=== PATIENT | male | born 2000 | race Caucasian/White ===

== ENCOUNTER 2019-03-24 13:04 | Day surgery (SDC) | payer OTHER ==
[~2019-03-24 13:04] MED LIST: CEFAZOLIN 2 GM/50 ML (PMX) 50 ML IVPB ONE; LACTATED RINGER'S 1,000 ML IV SCH
== END 2019-03-24 14:00 | disposition home or self-care (01) ==
LOC: SDS 13:04
PROVIDERS: ATTEND Orthopaedic Surgery Adult Reconstructive Orthopaedic Surgery
DX: S82.52XD Displaced fracture of medial malleolus of left tibia, subsequent encounter for closed fracture with routine healing (principal); X58.XXXD Exposure to other specified factors, subsequent encounter; Z53.9 Procedure and treatment not carried out, unspecified reason

== ENCOUNTER 2019-04-02 07:52 | Day surgery (SDC) | payer OTHER ==
[2019-04-01 12:01] VITALS: BMI 22.3
[~2019-04-02] VITALS: Ht 162.6 cm; Wt 58.8 kg
[2019-04-02] VITALS (14 sets, daily range): BP systolic 118–143; BP diastolic 75–97; PULSE 84–110; RESP 10–18; Ht 162.6 cm; Wt 58.8 kg
[2019-04-02] MEDS ORDERED: IBUP-1542 PO (09:45)
--- NOTE | 2019-04-02 10:16 | PREAC ---
Date/Time of Note Date/Time of Note DATE: 04/02/19 TIME: 10:15 Anesthesia Eval and Record Evaluation Time Pre-Procedure Interview DATE: 04/02/19 TIME: 10:15 Age 18 Sex male NPO: 8 hrs Preoperative diagnosis Left Ankle Fracture Planned procedure Left Ankle ORIF Past Medical History Past Medical History: None Surgery & Anesthesia Issues No known issue Meds Anticoagulation: No Beta Nadine within 24 hr: No Reason Beta Nadine not given: Pt. not on B-Nadine Reported Medications Ibuprofen* (Ibuprofen*) 600 Mg Tablet, 600 MG PO Q6H, TAB 04/02/19 Current Medications Lactated Ringer's 1,000 ml @ 25 mls/hr Q24H IV Last administered on 04/02/19at 09:15; Admin Dose 25 MLS/HR; Start 04/02/19 at 07:00 Meds reviewed: Yes Allergies Coded Allergies: amoxicillin (Verified Allergy, Unknown, 04/02/19) Allergies Reviewed: Yes Labs/Studies Labs Reviewed: Reviewed by anesthesiologist test: N/A Studies: ECG (n/a), CXR (n/a) Pre-procedure Exam Last vitals Vital Signs Date Temp Pulse Resp B/P (MAP) Pulse Ox O2 O2 Flow FiO2 Time Delivery Rate 04/02/19 98.8 101 16 131/81 96 Room Air 09:18 (98) Airway: Adequate mouth opening, Adequate thyromental dist Mallampati: Mallampati II Teeth: Normal Lung: Normal Heart: Normal ASA Physical Status ASA physical status: 1 Emergency: None Planned Anesthetic General/MAC: LMA Nerve block: Femoral (left), Sciatic (left) Planned Pain Management Single shot nerve block, Parenteral pain med Pre-operative Attestations Prior to commencing anesthesia and surgery, the patient was re-evaluated, there was verification of: *The patient's identity *The results of appropriate recent lab work and preoperative vital signs *The above evaluation not changing prior to induction *Anesthetic plan, risk benefits, alternative and complications discussed with patient/family; questions answered; patient/family understands, accepts and wishes to proceed. BAILEE MEDINA MD Apr 02, 2019 10:16
[2019-04-02] MEDS ORDERED: PROPOFOL 20 ML ONE (10:23)
[2019-04-02] MEDS ORDERED: ROCURONIUM 50 MG INJ ONE (10:23)
[2019-04-02] MEDS ORDERED: CEFAZOLIN 1 GM INJ ONE (10:23)
[2019-04-02] MEDS ORDERED: FENTAnyl 50 MCG/ML VIAL ONE (10:25)
[2019-04-02] MEDS ORDERED: MIDAZOLAM 1 MG/ML 2 ML INJ ONE (10:25)
[2019-04-02] MEDS ORDERED: ROPIVACAINE 0.5 % 30 ML VIAL ONE (10:25)
[2019-04-02] MEDS ORDERED: ROPIVACAINE 0.2% 20 ML VIAL ONE (10:25)
[2019-04-02] MEDS ORDERED: METOCLOPRAMIDE 10 MG INJ IV PRN (10:30)
[2019-04-02] MEDS ORDERED: ONDANSETRON 4 MG INJ IV PRN (10:30)
[2019-04-02] MEDS ORDERED: DIPHENHYDRAMINE 50 MG INJ IV PRN (10:30)
[2019-04-02] MEDS ORDERED: MEPERIDINE 25 MG INJ IV PRN (10:30)
[2019-04-02] MEDS ORDERED: HYDROmorphONE 1 MG/5 ML IV SYRINGE IV PRN ×3 (10:30)
[2019-04-02] MEDS ORDERED: OXYCODONE/ACETAMINOPHEN (5/325) TAB PO PRN (10:30)
[2019-04-02] MEDS ORDERED: EPHEDrine 25 MG/5 ML SYG IV PRN (10:30)
[2019-04-02] MEDS ORDERED: FENTAnyl 50 MCG/ML VIAL IV PRN ×3 (10:30)
--- NOTE | 2019-04-02 10:39 | HPN ---
Date/Time of Note Date/Time of Note DATE: 04/02/19 TIME: 10:39 Interval H&P Admission Note Pt. seen H&P reviewed: No system changes MARIA LUISA DOW MD Apr 02, 2019 10:39
[2019-04-02] MEDS ORDERED: POLYMYXIN/BACITRACIN 1L IRRIG IRR ONE (10:50)
[2019-04-02] MEDS ORDERED: BACITRACIN 50000 UNITS INJ ONE (11:10)
[2019-04-02] MEDS ORDERED: ONDANSETRON 4 MG INJ ONE (11:30)
[2019-04-02] MEDS ORDERED: DEXAMETHASONE 4 MG/ML 5 ML INJ ONE (11:30)
[2019-04-02] MEDS ORDERED: KETOROLAC 30 MG INJ ONE (11:30)
[2019-04-02] MEDS ORDERED: METOCLOPRAMIDE 10 MG INJ ONE (11:30)
[2019-04-02] MEDS ORDERED: GLYCOPYRROLATE 0.4 MG INJ ONE (12:49)
[2019-04-02] MEDS ORDERED: NEOSTIGMINE 3 MG/3 ML SYRINGE ONE (12:49)
--- NOTE | 2019-04-02 13:09 | PAC ---
Date/Time of Note Date/Time of Note DATE: 04/02/19 TIME: 13:09 Post-Anesthesia Notes Post-Anesthesia Note Last documented vital signs Vital Signs Date Temp Pulse Resp B/P (MAP) Pulse Ox O2 O2 Flow FiO2 Time Delivery Rate 04/02/19 98.8 101 16 131/81 96 Room Air 12:08 (98) Activity: WNL Respiratory function: WNL Cardiovascular function: WNL Mental status: Baseline Pain reasonably controlled: Yes Hydration appropriate: Yes Nausea/Vomiting absent: Yes BAILEE MEDINA MD Apr 02, 2019 13:09
--- NOTE | 2019-04-02 13:11 | SIPON ---
Date/Time of Note Date/Time of Note DATE: 04/02/19 TIME: 13:10 Operative Report Preoperative Diagnosis Left Bimalleolar Ankle Fracture Postoperative Diagnosis Same Operation/Procedure Performed Left Ankle ORIF Surgeon Julian Rosario MD commercial escrow assistant Raymundo Kim MD Anesthesia: general Estimated blood loss: minimal Transfusion Required none Specimen none Grafts/Implants none Complications none JULIAN ROSARIO MD Apr 02, 2019 13:11
--- NOTE | 2019-04-02 13:24 | OPR ---
Date/Time of Note Date/Time of Note DATE: 04/02/19 TIME: 13:15 Operative Report Free Text/Dictation DATE OF OPERATION: April 02, 2019 PREOPERATIVE DIAGNOSIS: 1.Left Young C fibula fracture 2. Left medial malleolus fracture POSTOPERATIVE DIAGNOSIS: Same OPERATION PERFORMED: 1.Left ankle open reduction internal fixation IMPLANT USED: [place] 12 hole plate, 44 mm screw from medial malleolus SURGEON: Julian Dow MD SENIOR MANUFACTURING TEST ENGINEER: Raymundo Kim MD ANESTHESIA: General endotracheal. ANESTHESIOLOGIST: Smith Borges MD COMPLICATIONS: None. ESTIMATED BLOOD LOSS: Minimal TOURNIQUET TIME: 103 minutes at 250mmHg DESCRIPTION OF OPERATION: The patient was brought to the OR and laid supine on the OR table. General anesthesia was induced. A tourniquet was placed high up on his left thigh. The left lower extremity was then prepped and draped in the usual sterile fashion. Next, Esmarch bandage was used to exsanguinate the left lower extremity, and the tourniquet was inflated to 250 mmHg. Next, standard lateral approach to the distal fibula was performed. The fracture was exposed. There was a moderate amount of comminution in the fibula. Therefore, the comminuted segment was not devascularized, and a 12-hole LCDC plate was fashioned to the fibula. C-arm fluoroscopy was used to establish length with the application of the plate. Three screws were placed in the distal fragments followed by three bicortical non locking screws in the proximal fragm ent. The comminuted segment was bridged with the plates. Excellent reduction was obtained with good length of the fibula. Next, attention was directed towards the medial malleolar fracture. A standard medial approach was then performed exposing the medial malleolar fracture. Next, the medial malleolar fracture fragments were provisionally reduced using K- wires. The articular surface was restored as best as possible. One 4.0 mm cancellous screw was placed into the main fragments up into the distal tibial me taphysis meauring 44mm. Next, C-arm fluoroscopy was used to confirm excellent reduction of the ankle mortise as well as placement of all hardware. Next, the external rotation of the foot under live fluoroscopy showed no widening of the mortise. Next, again, C-arm fluoroscopy was used to confirm reduction of the mortise and good placement of all hardware with good length of all screws. Next, plain films were obtained in the OR. Both wounds were thoroughly irrigated with normal saline. Closure was obtained using 2-0 Vicryl suture in inverted fashion. Lyme were used to close the skin. Sterile dressings were applied, and the patient was placed into an AO splint. Next, the patient was awakened from anesthesia, transferred back onto the stretcher, and taken to the PACU for recovery. Prior to closure, the tourniquet was deflated, and hemostasis was obtained. POST OPERATIVE CARE: He will be non weight bearing on the left lower extremity. He will have crutches for ambulation. He will receive pain medications. Upon discharge she will follow-up in my office within 10 to 14 days postoperatively. JULIAN DOW MD Apr 02, 2019 13:24
== END 2019-04-02 15:13 | disposition home or self-care (01) ==
LOC: SDS 07:52
PROVIDERS: ATTEND Orthopaedic Surgery Adult Reconstructive Orthopaedic Surgery
DX: S82.402A Unspecified fracture of shaft of left fibula, initial encounter for closed fracture (principal); S82.52XA Displaced fracture of medial malleolus of left tibia, initial encounter for closed fracture; X58.XXXA Exposure to other specified factors, initial encounter
CPT/HCPCS: 27766; 73600; 73610; C1713; J0690; J1100; J1885; J2175; J2250; J2405; J2710; J2765; J2795; J3010; Z7512; Z7610